=== PATIENT | female | born 1990 | race Caucasian/White ===

== ENCOUNTER 2016-07-22 08:04 | Emergency (ER) | payer OTHER ==
[~2016-07-22] VITALS: Ht 172.7 cm; Wt 74.8 kg
[~2016-07-22 08:04] MED LIST: CYCLOBENZAPRINE10 M1 PO; IBUPROFEN800 M1 PO; PERCOCET 5-3251 EACH PO
--- NOTE | 2016-07-22 08:07 | ED SKIN/ALLERGY COMPLAINT ---
History of Present Illness General Chief Complaint: Skin Rash/ Abcess Stated Complaint: ?SKIN INFECTION ON LT BREAST Source: patient Exam Limitations: no limitations Vital Signs & Intake/Output Vital Signs & Intake/Output Vital Signs Date Time Temp Pulse Resp B/P Pulse O2 O2 Flow FiO2 Ox Delivery Rate 07/22 0809 97.7 71 16 126/82 98 Room Air Allergies Coded Allergies: NO KNOWN ALLERGIES (09/23/10) Triage Nurses Notes Reviewed? yes Onset: Gradual Duration: constant Timing: recent history Severity: severe Severity Numbers: 7 HPI: Patient is a 26-year-old female who presents to emergency room stating that last week patient was in [place] and was exposed to multiple hours of sunlight where she began to develop a painful blister to the right lower aspect of her lip which has continued and which patient states that she has had multiple episodes of this in the past and her whole family has cold sores. Patient also states that she has a remote history of breast implants and a nipple ring placement placed many years ago in which she presents with a 3 day history of gradual onset of left-sided nipple and breast pain swelling and mild purulent discharge. Patient states that she's had similar episodes in the past where incision and drainage was performed. Patient has tactile fevers. Patient hasn't taken any medications for symptoms. (SHIVA BRICEÑO) Reconcile Medications Cephalexin (Keflex) 500 MG CAPSULE 1 CAP PO BID INFECTION Ibuprofen 800 MG TABLET 1 TAB PO Q6PRN PRN pain Ketorolac Tromethamine 10 MG TABLET 1 TAB PO TID PRN PAIN Oxycodone HCl/Acetaminophen (Percocet 5-325 MG Tablet) 1 EACH TABLET 1-2 TAB PO Q6-PRN PRN severe pain Valacyclovir HCl (Valtrex) 1,000 MG TABLET 1 TAB PO BID HSV (KEON MA,DELLA Nolen) Past History Travel History Traveled to [place] past 21 day No Medical History Any Pertinent Medical History? see below for history Other Medical Hx: HSV Surgical History Surgical History: non-contributory Psychosocial History What is your primary language Hebrew Family History Hx Contributory? No (SHIVA BRICEÑO) Review of Systems Review of Systems Constitutional: Reports: see HPI. EENTM: Reports: no symptoms, mouth pain. Respiratory: Reports: no symptoms. Cardiovascular: Reports: no symptoms. GI: Reports: no symptoms. Genitourinary: Reports: no symptoms. Musculoskeletal: Reports: no symptoms. Skin: Reports: see HPI. Neurological/Psychological: Reports: no symptoms. Hematologic/Endocrine: Reports: no symptoms. Immunologic/Allergic: Reports: no symptoms. All Other Systems: Reviewed and Negative (SHIVA BRICEÑO) Physical Exam Physical Exam General Appearance: no apparent distress, alert, comfortable Head: atraumatic Eyes: Bilateral: normal appearance. Neck: normal inspection, supple, full range of motion Respiratory: normal breath sounds, chest non-tender Cardiovascular: regular rate/rhythm Back: normal inspection Skin: normal color Diagram Body: 1) Noted AEROLAR swelling tenderness and warmth The lateral aspect of the nipple ring noted mild purulent discharge No erythema no fluctuance no induration Head: 1) Scattered 4 tender vesicles noted with mild crusty yellow discharge (SHIVA BRICEÑO) Progress Differential Diagnosis: abscess/cellulitis, allergic reaction, anaphylaxis, angioedema, contact dermatitis, drug reaction, erythema multiforme, lyme disease , meningitis/sepsis, piyriasis rosea, scarlet fever, urticaria, HSV, MASTITIS Plan of Care: Current Medications Sig/Isaac Start time Last Medication Dose Stop Time Status Admin Ketorolac 30 MG ONCE ONE 07/22 829 UNVr Tromethamine 07/22 830 (Toradol) Patient this time shows no exam findings of abscess and no warranting at this time of incision and drainage however did discuss with patient has symptoms worsen she will return. Patient does not have a primary care doctor in which she will return to the emergency room in 2 days if symptoms do not improve. Patient was afebrile nontoxic appearing I discussed with patient to remove the nipple ring until symptoms resolve Patient Also Has concerns of oral HSV infection (SHIVA BRICEÑO) Departure Departure Disposition: HOME OR SELF CARE Condition: Stable Clinical Impression Primary Impression: Mastitis Secondary Impressions: HSV (herpes simplex virus) infection Referrals: PATIENT HAS NO PRIMARY CARE DR (PCP/Family) Additional Instructions: As discussed begin to apply warm compresses to the region 20 minutes every 2 hours Begin the prescription of Keflex as directed for the full course. Begin the prescription of Valtrex as directed for your symptoms. Return to the emergency room in 2 days if symptoms continue. If symptoms worsen return to emergency room. Prescriptions are waiting at [facility] pharmacy. YOU will receive a phone call for her primary care doctor establishment appointment please go to this appointment Departure Forms: Customer Survey General Discharge Information Prescriptions: Current Visit Scripts Cephalexin (Keflex) 1 CAP PO BID #20 CAP Valacyclovir HCl (Valtrex) 1 TAB PO BID #2 TAB Ketorolac Tromethamine 1 TAB PO TID PRN PAIN #15 TAB (SHIVA BRICEÑO) PA/BROKER IN CHARGE Co-Sign Statement Statement: ED Attending supervision documentation- [] I saw and evaluated the patient. I have also reviewed all the pertinent lab results and diagnostic results. I agree with the findings and the plan of care as documented in the PA's/BROKER IN CHARGE's documentation. [X] I have reviewed the ED Record and agree with the PA's/BROKER IN CHARGE's documentation. [] Additions or exceptions (if any) to the PAs/BROKER IN CHARGE's note and plan are summarized below: [] (KEON MA,DELLA Nolen)
[2016-07-22 08:09] VITALS: BP 126/82
[2016-07-22] MEDS ORDERED: KEFLEX500 M1 PO (08:27)
[2016-07-22] MEDS ORDERED: KETOROLAC TROME10 M1 PO (08:27)
[2016-07-22] MEDS ORDERED: VALTREX1000 MG PO (08:27)
== END 2016-07-22 08:36 ==
LOC: ERH 08:04
DX: N61.0 Mastitis without abscess (principal); B00.9 Herpesviral infection, unspecified
CPT/HCPCS: 96372; J1885